=== PATIENT | male | born 1960 | race Caucasian/White ===

== ENCOUNTER 2024-01-17 08:05 | Emergency (ER) | payer MEDICARE, OTHER, SELFPAY ==
[2024-01-17] VITALS (7 sets, daily range): BP systolic 72–160; BP diastolic 50–102
--- NOTE | 2024-01-17 09:10 | ED.CVA ---
History of Present Illness
General
Chief Complaint: CVA/TIA Symptoms
Source: patient and records
Exam Limitations: none
Time Seen by Provider: 01/17/24 08:36
Nursing documentation reviewed up to this point in time: agreed with except (Triage note mentions left facial droop but patient actually has right facial droop)
Onset of Stroke Symptoms
Onset of symptoms known: Yes
Date of onset of symptoms: 01/16/24
History of Present Illness
History of Present Illness:
63-year-old male with past medical history of hyperlipidemia, atrial fibrillation on Eliquis, CHF who presents to the emergency department for evaluation of right facial droop and numbness. Patient reports that he first noticed abnormal
sensation/numbness in his face Thursday night into Thursday morning (he says around midnight). He says that he has CPAP mask that he wears at night and attributed the feeling to positioning of his CPAP. He says that when he woke up around 5 AM
Thursday morning he did notice that he had a slight facial droop but again attributed to his CPAP. He says that this morning he woke up and while he was eating breakfast he could not keep the food in his mouth due to drooping of the right side of
the face. He came to the emergency room to be assessed. Aside from numbness and weakness in the right face he also reports difficulty with his hearing in the right ear. He denies any other significant symptoms�denies headache, weakness or
numbness in the extremities, difficulty with speech or vision. He says that he did have drooping of his right eye in the distant past and was told it was related to a migraine. He does have a known history of A-fib, is on Eliquis and compliant.
Past History
Past History
ED Past Medical History: Hypercholesterolemia and Other (Diverticulitis)
ED Past Surgical History: Bowel resection (for diverticulitis 2016)
Social History
Tobacco: Smoker (A pack and 1/2/day)
Alcohol: Occasional (3-4 cocktails per week)
Drug: None
Personal:
Living: alone
Family History
Family History: Other (His father had hypertension diabetes, testicular cancer and CT)
Review of Systems
Review of Systems
All Other Systems: ROS reviewed and negative except as documented in HPI and ROS
Constitutional: Denies fever
EENT: Reports other (Facial droop, hearing loss)
Respiratory: Denies cough or trouble breathing
Cardiac: Denies chest pain or palpitations
ABD/GI: Denies abdominal pain, nausea or vomiting
Musculoskeletal: Denies neck pain or back pain
Neurological: Reports weakness (Facial) and numbness (Facial); Denies dizzy or headache
Phy Exam
Physical Exam
Physical Exam:
General: Awake, alert, oriented x3; no acute distress
Head: Normocephalic, atraumatic
Eyes: Conjunctiva normal, EOMI, pupils equal round react light
Ears: TMs clear bilaterally�specifically no vesicles or other lesions in the right canal
Throat: Airway intact, handling secretions
Neck: Trachea midline, supple without meningismus
Lungs: Clear to auscultation bilaterally, no wheezing, rales, rhonchi
Heart: Regular rate and rhythm, no murmurs, gallops, or rubs�apparently had bradycardia in triage resolved on my assessment
Neuro: Patient has right facial droop�he can slightly raise the right eyebrow but cannot raise the corner of the right side of his mouth; subjective sensory deficit right side of the face; cranial nerves otherwise intact; motor and sensory function
is intact and symmetric proximally and distally in the upper and lower extremities; speech is fluid with no dysarthria or aphasia; no limb ataxia
Skin: no rash
Extremities: No edema in extremities, equal pulses in all extremities
Scores
NIH Stroke Score
Level of Consciousness: 0 - Alert
LOC Questions: 0-Answers both correctly
LOC Commands: 0-Performs both correctly
Best Horizontal Gaze: 0-Normal
Visual Kim: 0=Normal, no visual loss
Facial Palsy: 3=Complete paralysis
Motor - Right Arm: 0=No drift 10 seconds
Motor - Left Arm: 0=No drift 10 seconds
Motor - Right Le-No drift 5 seconds
Motor - Left Le-No drift 5 seconds
Limb Ataxia: 0-Absent
Sensation: 1-Mild loss (Right face)
Best Language: 0-No aphasia
Dysarthria: 0-Normal
Extinction and Inattention: 0-No abnormality
Total Score:: 4
Thrombolytic Contraindication
Inclusion and Exclusion criteria reviewed: Yes
Reasons for NON-Tx with Thrombolytics ABSOLUTE Exclusions: Greater than 4.5 hrs from onset of sxs and Patient taking oral anticoagulant and last dose within 48 hours
Heart Failure Risk
Heart Failure Risk Score: Not Applicable
Heart Score for Chest Pain Patients
STEMI patient?: Not applicable
Withdrawal Assessment of Alcohol
Withdrawal Assessment Completed?: Not applicable
Course
Orders/Labs/Results
Orders:
Orders
01/17/24 08:12
Electrocardiogram (*1) Urgent
Reason for Study: Bradycardia / Tachycardia
EKG- Treatment ONCE
01/17/24 08:38
CT Head W/o Iv Contrast Urgent
Comment:
Reason For Exam: L facial weakness, headache, dizzy
01/17/24 08:39
Urinalysis Reflex To Culture Urgent
Date Specimen was Collected: 01/17/24
Time Specimen was Collected: 09:01
01/17/24 09:03
Complete Blood Count/With Diff Urgent
Comprehensive Metabolic Panel Urgent
01/17/24 09:06
NEUROLOGY CONSULT Urgent
Consulting Provider: Haris Fuller
Was physician already notified: Yes
01/17/24 09:09
Electrocardiogram (*1) Urgent
Reason for Study: TIA/Stroke
EKG- Treatment ONCE
01/17/24 10:53
Add On- LAB Routine
Comments:: Please add to today's labs or draw as routine
Tests Added?: TSH reflex, Ferritin, Folate, Vit. B12, ESR, Lyme, PHONG
01/17/24 10:55
Add On- LAB Routine
Comments:: Please add to today's labs or draw as routine
Tests Added?: HgbA1C, CRP
Abnormal Lab Results
01/17/24
09:03
MCV 95.8 H fL
(80.0-94.0)
MCH 34.1 H pg
(27.0-31.0)
Abs Immat Gran (auto) 0.1 H 10^3/uL
(0-0.05)
Absolute Monos (auto) 0.8 H 10^3/uL
(0.1-0.6)
Immature Gran % 1.3 H %
(0-0.5)
Lymphocytes % 20.0 L %
(20.5-51.1)
Glucose 116 H mg/dl
(70-99)
01/17/24 09:03
01/17/24 09:03
Vital Signs
Initial and Last Documented VS:
Initial Vital Signs
Temp Pulse BP Pulse Ox
36.7 C 40 72/50 97
01/17/24 08:11 01/17/24 08:11 01/17/24 08:11 01/17/24 08:11
Last Documented Vital Signs
Temp Pulse Resp BP Pulse Ox
36.7 C 62 12 119/101 95
01/17/24 08:11 01/17/24 10:45 01/17/24 10:45 01/17/24 10:00 01/17/24 10:45
MDM/Problems Addressed
Differential Diagnosis Includes:
Jenkins's palsy, stroke, brain mass, hemorrhage, complex migraine, seizure
MDM/Problems Addressed:
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 Mildly hypertensive otherwise normal vitals; apparently had bradycardia in triage but EKG
shows sinus rhythm with rate in the 70s. Jenkins's palsy is certainly a consideration but he can slightly raise his right eyebrow which raises concern for possible stroke especially with a chronic ointment sensory deficit and report of some hearing
disturbance as well. Furthermore he has a history of A-fib which increases stroke risk. He is not a TNK candidate given active anticoagulant use and would be outside window for TNK regardless; for this reason no stroke alert called. Will send for
a CT head. Check labs including a CBC and CMP, urinalysis. Case was discussed with neurology for evaluation.
Labs reviewed: CBC and CMP no clinically significant abnormalities. CT head negative for any acute stroke; does show findings concerning for sinusitis. EKG shows sinus rhythm. Neurology evaluated at bedside and suspect Jenkins's palsy. Recommended
treating with steroid and can follow-up as an outpatient. Will also start Valtrex. CT did show sinusitis, unlikely trigger for facial nerve palsy but will cover with antibiotics. Artificial tears and advised to tape eye shut at night. Spoke
about treatment plan and follow-up plan with the patient and he is comfortable with this. All questions answered.
Chronic conditions affecting care:
A-fib on Eliquis
Acute Exacerbation and/or Progression of Chronic Illness:
Acutely hypertensive
Acute Exacerbation and/or Progression of Chronic Illness: HTN
*Radiology
Radiology exam reviewed: radiology read reviewed
*Pulse Oximetry
Patient hypoxic: no
*EKG
Interpreted by ED Provider?: Yes
Heart Rate: 72
Rate: normal
Rhythm: sinus and PAC's
[place]: normal axis
Interval: long QT
QRS Pattern: normal QRS
Ischemia: non-specific ST changes
*Critical Care Note
Total Time (30-74mins, 75-104mins- exclusive of procedures): Not Applicable
Data Reviewed
Review of Other/Old Records Reveals: Labs and Records
Source: patient and records
Patient Management
Discussion with other providers: It Senior Analyst (Discussed with neurology)
ED Attending Note
-
Portions of this chart may have been created with voice recognition software.� Occasional wrong word or��sound alike� substitutions may have occurred due to the inherent limitations of voice recognition software.
Discharge Plan
Departure
Patient Disposition: Home (Routine Discharge)
Date of Disposition: 01/17/24
Time of Disposition: 10:59
Patient with high blood pressure during this ER visit?: Yes
Discharge Problem:
Jenkins's palsy, Sinusitis
Instructions: Jenkins's Palsy (DC), Sinusitis, Adult ED
Prescriptions:
New
prednisone 20 mg tablet
60 mg PO DAILY 7 Days Qty: 21 0RF
valacyclovir [Valtrex] 1 gram tablet
1,000 mg PO TID 7 Days Qty: 21 0RF
artifi.tears(hypromellose)(PF) 1.7 % drops with applicator
2 drp ophthalmic (eye) Q1H Qty: 12 0RF
amoxicillin-pot clavulanate 875-125 mg tablet
1 tab PO BID 7 Days Qty: 14 0RF
No Action
'Statin'
1 tab PO HS
Patient Comments:
'some statin' unsure what
Ambien: Tab
PO PRN PRN (Reason: sleep)
Patient Comments:
patient states he does not remember the dose, he takes it once a week or so.
acetaminophen 325 MG tablet
650 mg PO Q4HPRN PRN (Reason: mild pain/JACKSON/temp> 100.4F) 0RF
polyethylene glycol 3350 17 GRAMS powder in packet
17 grams feeding tube DAILY 0RF
carvedilol 3.125 MG tablet
3.125 mg PO BID Qty: 60 3RF
magnesium hydroxide 30 ML suspension
30 ml PO DAILYPRN PRN (Reason: CONSTIPATION) 0RF
furosemide 80 MG tablet
80 mg PO DAILY Qty: 90 0RF
pantoprazole 40 MG tablet,delayed release (DR/EC)
40 mg PO DAILY Qty: 30 3RF
lisinopril 5 MG tablet
5 mg PO DAILY Qty: 30 3RF
alum-mag hydroxide-simeth [Mag-Al Plus] 30 ML suspension
30 ml PO Q6HPRN PRN (Reason: INDIGESTION) 0RF
apixaban [Eliquis] 5 MG tablet
5 mg PO BID Qty: 60 3RF
amoxicillin-pot clavulanate 875-125 mg tablet
1 tab PO BID Qty: 19 0RF
metronidazole 500 mg tablet
500 mg PO TID Qty: 21 0RF
ciprofloxacin HCl [Cipro] 500 mg tablet
500 mg PO BID Qty: 14 0RF
Referrals:
Haris Fuller MD [Active] - Call in 1-3 days for appt (Neurology)
Macario Harrison MD [Active] - Call in 1-3 days for appt
Rachid Gilmore MD [Family Provider] - Follow up in 5-7 days
Activity Restrictions/Additional Instructions:
Thank you for visiting the Emergency Department at [facility].
1. Please schedule a follow up appointment as directed. Call first thing tomorrow morning to make an appointment.
2. If indicated, please take your medications as instructed and indicated on discharge paperwork.
3. If any of your symptoms do not improve, or persist, or become more severe within 6-12 hours, please return to the emergency department for further care.
4. Please return to the emergency department if you develop a headache, neck pain/stiffness, fever greater than 100.4F, chest pain, shortness of breath, persistent nausea, vomiting, slurred speech, difficulty walking, numbness/tingling, weakness,
signs of infection or any other symptoms that are worrisome to you.
Please call [phone] if you have any questions.
Interventions
Interventions:
*Risk Screen - Suicide Last Done: 01/17/24 08:12
*General Assessment Last Done: 01/17/24 08:12
*Neglect/Abuse Screening Last Done: 01/17/24 08:12
ED- Fall Risk Assessment Last Done: 01/17/24 08:12
*ED COVID-19 Vaccine History Last Done: 01/17/24 08:12
ED- Neurological Assessment Last Done: 01/17/24 08:12
ED- Cardiac Assessment Last Done: 01/17/24 08:12
Discharge Date and Time
Print Language: SERBIAN
[2024-01-17 09:21] LABS: % Basophils 0.4 % (0-2); % Immature Granulocytes 1.3 % (0-0.5); % Monocytes 8.1 % (1.7-9.3); % Neutrophils 67.2 % (42.2-75.2); Absolute Eosinophils 0.3 10^3/uL (0-0.7); Absolute Immature Granulocytes 0.1 10^3/uL (0-0.05); Absolute Lymphocytes 1.9 10^3/uL (1.2-3.4); Absolute Monocytes 0.8 10^3/uL (0.1-0.6); Absolute Neutrophils 6.3 10^3/uL (1.4-6.5); Hematocrit 50.6 % (39.0-52.0); Mean Corp Hgb Conc. 35.6 g/dL (33.0-37.0); Mean Corpuscular Hgb 34.1 pg (27.0-31.0); Mean Corpuscular Volume 95.8 fL (80.0-94.0); Nucleated Red Blood Cells % 0 % (-); Platelet Count 348 10^3/uL (130-400); Red Blood Cell Count 5.28 10^6/uL (4.70-6.10); Red Cell Dist. Width 13.7 % (11.5-14.5); White Blood Cell Count 9.4 10^3/uL (4.8-10.8)
[2024-01-17 09:36] LABS: ALT (SGPT) 14 U/L (0-50); AST (SGOT) 23 U/L (17-59); Albumin 4.2 g/dl (3.5-5.0); Alkaline Phosphatase 96 U/L (38-126); Blood Urea Nitrogen 18 mg/dl (9-20); Calcium 9.6 mg/dl (8.4-10.2); Carbon Dioxide 27 mmol/L (22-30); Chloride 105 mmol/L (98-107); Glucose 116 mg/dl (70-99); Potassium 4.1 mmol/L (3.5-5.1); Sodium 140 mmol/L (135-145); Total Bilirubin 0.7 mg/dl (0.2-1.3); Total Protein 6.7 g/dl (6.3-8.2); eGFR > 60.00
--- NOTE | 2024-01-17 09:37 | CON.NEURO ---
Neuro Assessment/Plan
Assessment
Acute onset of right-sided facial weakness
Most likely due to right facial nerve palsy based on exam.
Plan
Provide prednisone 60 mg with 10 mg taper daily until off
No indication is of antiviral agents
Speech therapy to consider facial stimulation and exercises for improved movement on the right
Check blood work for potential metabolic causes
Will follow as needed
Consultation
Order
Date of Consultation: 01/17/24
Requesting Provider: Emergency department physician
Reason for Consult: Right-sided weakness
Subjective/Objective
Subjective Data
Date of Service: January 17, 2024
Right-Handed
Patient presented to this [facility]'s emergency department approximately 36 hours after onset of right-sided facial weakness and numbness. The patient began experiencing facial sensation in the right side of the face 36 hours ago and continue to be
aware of this problem at approximately 0000 hrs. yesterday. Presumed that his symptomatology was due to positive air pressure mask and machine use and continue to experience that problem yesterday morning with the addition of right-sided facial
weakness. With the suggestion of mild worsening and difficulty with food falling out of his mouth he presented to this [facility]'s emergency department. The patient also reported difficulty with right ear hearing starting 24 hours ago.
Left side OK. No cognitive issues.
Numbness extended from V2 to V3 and then right eye became heavy.
Poor quality of sleep which is chronic. Prior treatments with OTC medications and zolpidem.
Objective Data
Vital Signs
Temp Pulse Resp BP Pulse Ox
36.7 C 52 16 159/102 97
01/17/24 08:11 01/17/24 08:29 01/17/24 08:29 01/17/24 08:29 01/17/24 08:11
Lab Results
01/17/24 09:03
01/17/24 09:03
Sodium 140 mmol/L (135-145) 01/17/24 09:03
Potassium 4.1 mmol/L (3.5-5.1) 01/17/24 09:03
BUN 18 mg/dl (9-20) 01/17/24 09:03
Glucose 116 mg/dl (70-99) H 01/17/24 09:03
Calcium 9.6 mg/dl (8.4-10.2) 01/17/24 09:03
Patient Allergies
Tetanus Vaccines and Toxoid [Tetanus Vaccines & Toxoid] Allergy (Intermediate, Verified 01/17/24 08:28)
Hives
cephalexin monohydrate [From Keflex] Allergy (Mild, Verified 01/17/24 08:28)
Unknown
amoxicillin [Amoxicillin] Adverse Reaction (Verified 01/17/24 08:28)
Unknown
atorvastatin calcium [From Lipitor] Adverse Reaction (Verified 01/17/24 08:28)
Unknown
Review of Systems
-
History Source: Patient
All other systems: Reviewed and negative
EENT: Hearing Loss; Negative Decreased Vision or Swallowing Difficulty
Respiratory: Negative Trouble Breathing
Cardiac: Negative Chest Pain
Abdomen/GI: Negative Incontinence of Stool
Genitourinary: Negative Incontinence
Musculoskeletal: Negative Back Pain or Neck Pain
Neuro: Negative Dizzy or Headache
Physical Exam
-
General: No Apparent Distress and Appears Stated Age
Eyes: OU Absent Papilledema, Able to visualize OU, Round OU, [place] Conjunctivae and No Ptosis
HEENT: Anicteric and Moist Mucous Membranes
Neck: Full Range of Motion
Respiratory: No Dyspnea
Cardiac: No JVD
GI: Non-distended
Skin: Unremarkable
Extremities: No Clubbing, No Cyanosis and No Edema
Psych: Intact Judgement/Insight
Extended Neurological Exam
Mood & Affect: Mood Unremarkable and Affect Unremarkable
Attention Span & Concentration: Awake, Alert, Interactive and No Difficulty with 2 Step Request
Memory: Unremarkable
Tremor: Hand Tremor Absent and Head Tremor Absent
Speech: Quality Unremarkable and Quantity Unremarkable
Cranial Nerve II: Left Eye: Pupillary Reactivity Unremarkable, Pupillary Size Unremarkable and Visual Kim Intact
Cranial Nerve II: Right Eye: Pupillary Reactivity Unremarkable, Pupillary Size Unremarkable and Visual Kim Intact
Cranial Nerves III, IV, : Extraocular Movement: Extraocular Movement Full in all Directions
Cranial Nerve VII: Facial Symmetry: Reduced (On the right, with reduced eye blink speed on the right and reduced right forehead movement)
Cranial Nerve VIII: Hearing: Reduced on Left; Negative Reduced on Right
Cranial Nerves IX, X: Palate Movement: Palate Elevation Symmetric
Cranial Nerve XI: Shoulder Shrug: Unremarkable
Cranial Nerve XII: Tongue Protusion: Midline
Muscle Strength, Overall: Full Throughout
Muscle Bulk & Tone: Bulk Unremarkable and Tone Unremarkable
Pronator Drift: No Drift in Upper Extremities
Deep Tendon Reflexes: Trace Throughout
Touch Sensation: Unremarkable
Coordination: [id number] Testing Unremarkable
Babinski Sign: Absent Bilaterally
Data Reviewed
-
CT Head: Report Reviewed and Image Reviewed
Labs: Report Reviewed
Reviewed with: Physician and Patient
Old Records: Summarized
Medications
-
Home Medications
�Medication �Instructions �Recorded
'Statin' 1 tab PO HS 03/08/21
Ambien: PO PRN PRN sleep 03/10/21
acetaminophen 325 mg tablet 650 mg (2 x 325 mg) PO Q4HPRN PRN 03/13/21
mild pain/JACKSON/temp> 100.4F
aluminum-mag hydroxide-simethicone 30 ml PO Q6HPRN PRN INDIGESTION 03/13/21
200 mg-200 mg-20 mg/5 mL oral susp
(Mag-Al Plus)
apixaban 5 mg tablet (Eliquis) 5 mg PO BID #60 tabs 03/13/21
carvedilol 3.125 mg tablet 3.125 mg PO BID #60 tabs 03/13/21
furosemide 80 mg tablet 80 mg PO DAILY #90 tabs 03/13/21
lisinopril 5 mg tablet 5 mg PO DAILY #30 tabs 03/13/21
magnesium hydroxide 400 mg/5 mL 30 ml PO DAILYPRN PRN CONSTIPATION 03/13/21
oral suspension
pantoprazole 40 mg tablet,delayed 40 mg PO DAILY #30 tabs 03/13/21
release
polyethylene glycol 3350 17 gram 17 grams feeding tube DAILY 03/13/21
oral powder packet
amoxicillin 875 mg-potassium 1 tab PO BID #19 tabs 06/08/22
clavulanate 125 mg tablet
ciprofloxacin HCl 500 mg tablet 500 mg PO BID #14 tabs 06/10/22
(Cipro)
metronidazole 500 mg tablet 500 mg PO TID #21 tabs 06/10/22
Past History
Past History
ED Past Medical History: Arrthythmia (Atrial fibrillation, nonsustained V. tach), CHF, Hypercholesterolemia, Other (Cardiogenic shock 2020, nonischemic cardiomyopathy, obstructive sleep apnea, acute renal insufficiency, suspected COPD, tobacco
abuse, obesity diverticulitis) and Other (Impaired fasting glucose, insomnia, pneumonia, migraine with aura)
ED Past Surgical History: Bowel resection (for diverticulitis 2016), Tonsilectomy and Urological (Vasectomy)
Social History
Tobacco: Smoker (A pack and 1/2/day)
Alcohol: Occasional (3-4 cocktails per week)
Drug: None
Personal:
Living: alone
Family History
Family History: Other (His father had hypertension diabetes, testicular cancer and [place])
[2024-01-17 11:45] LABS: C-Reactive Protein < 5.00 mg/L (0.0-10.00)
[2024-01-17] MEDS: DELTASONE 60 MG PO (12:00)
[2024-01-17 12:16] LABS: TSH Reflex To Free T4 1.91 uIU/ml (0.47-4.68)
[2024-01-17 12:20] LABS: Ferritin 72.9 ng/ml (17.9-464.0)
[2024-01-17 12:24] LABS: Glycohemoglobin (HgbA1c) 5.6 % (4.0-5.6)
[2024-01-17 12:51] LABS: Folate 10.2 ng/ml (2.76-20); Vitamin B12 257 pg/ml (239-931)
[2024-01-17 12:55] LABS: Erythrocyte Sed Rate 6 mm/hour (0-20)
[2024-01-18 14:39] LABS: Lyme Antibody Screen, EIA Negative (Negative)
[2024-01-19 00:11] LABS: ANA, IgG Reflex to HEp-2 None Detected (None Detected)
== END 2024-01-17 11:10 | disposition home or self-care (01) ==
LOC: EMR 08:05
PROVIDERS: CONSULT PHYSICIAN Psychiatry & Neurology Neurology; EMERGENCY PHYSICIAN Emergency Medicine; FAMILY PHYSICIAN Family Medicine
DX: G51.0 Bell's palsy (principal); J32.9 Chronic sinusitis, unspecified; E78.00 Pure hypercholesterolemia, unspecified; I48.91 Unspecified atrial fibrillation; Z79.01 Long term (current) use of anticoagulants; I11.0 Hypertensive heart disease with heart failure; I50.9 Heart failure, unspecified; F17.200 Nicotine dependence, unspecified, uncomplicated
CPT/HCPCS: 99285; 70450; 80053; 82607; 82728; 82746; 83036; 84443; 85025; 85652; 86038; 86140; 86618; 93005

== ENCOUNTER 2024-08-11 06:22 | Outpatient (RCR) | payer MEDICARE, OTHER, SELFPAY | END 2024-08-11 23:59 | disposition home or self-care (01) | LOC: RPT 06:22 | PROVIDERS: ATTENDING PHYSICIAN Physician Assistant | DX: G51.0 Bell's palsy (principal); Z73.6 Limitation of activities due to disability | CPT/HCPCS: 97112; 97162 ==

== ENCOUNTER 2024-09-01 14:46 | Outpatient (RCR) | payer MEDICARE, OTHER, SELFPAY | END 2024-09-01 23:59 | disposition home or self-care (01) | LOC: RPT 14:46 | PROVIDERS: ATTENDING PHYSICIAN Physician Assistant | DX: G51.0 Bell's palsy (principal); Z73.6 Limitation of activities due to disability; R47.89 Other speech disturbances | CPT/HCPCS: 97112; 97124 ==

== ENCOUNTER 2024-09-21 15:00 | Outpatient (RCR) | payer MEDICARE, OTHER, SELFPAY | END 2024-09-21 23:59 | disposition home or self-care (01) | LOC: RPT 15:00 | PROVIDERS: ATTENDING PHYSICIAN Physician Assistant | DX: G51.0 Bell's palsy (principal); Z73.6 Limitation of activities due to disability; R47.89 Other speech disturbances | CPT/HCPCS: 97010; 97112; 97124; 97530 ==

== ENCOUNTER 2025-01-13 02:44 | Inpatient (IN) | payer MEDICARE, OTHER, SELFPAY ==
[2025-01-12 23:57] VITALS: BP 156/103; BMI 31.3
[2025-01-13] VITALS (39 sets, daily range): BP systolic 93–159; BP diastolic 61–111; PULSE 2–84
--- NOTE | 2025-01-13 00:02 | ED.GENMED ---
History of Present Illness
General
Chief Complaint: Breathing Problem
Source: patient
Exam Limitations: none
Time Seen by Provider: 01/13/25 00:02
Nursing documentation reviewed up to this point in time: agreed with
History of Present Illness
History of Present Illness:
Patient with history atrial fibrillation on Eliquis and congestive heart failure on Lasix (per patient, only takes it on Saturdays), presents to ED secondary to sudden onset of shortness of breath with diaphoresis, when he laid down to sleep this
evening. Denies chest pain. Denies nausea or vomiting. Denies dizziness. Denies coughing. Denies recent illness. Denies back pain. Denies leg pain or swelling. Denies recent travel or surgery. Denies weight gain. Denies recent change in
medications or diet. Patient states that 4 years ago, he had similar symptoms, but worse. Per paramedics, patient found to be in moderate respiratory distress. With concern for potential CHF exacerbation/pulm edema, patient given nitroglycerin
bolus and started on infusion, as well as 100% nonrebreather, during transport to ED.
Past History
Past History
ED Past Medical History: Arrthythmia (Atrial fibrillation, nonsustained V. tach), CHF, Hypercholesterolemia, Other (Cardiogenic shock 2020, nonischemic cardiomyopathy, obstructive sleep apnea, acute renal insufficiency, suspected COPD, tobacco
abuse, obesity diverticulitis) and Other (Impaired fasting glucose, insomnia, pneumonia, migraine with aura)
ED Past Surgical History: Bowel resection (for diverticulitis 2016), Tonsilectomy and Urological (Vasectomy)
Social History
Tobacco: Smoker (A pack and 1/2/day)
Alcohol: Occasional (3-4 cocktails per week)
Drug: None
Personal:
Living: alone
Family History
Family History: Other (His father had hypertension diabetes, testicular cancer and SC)
Review of Systems
Review of Systems
Allergies reviewed?: Yes
All Other Systems: ROS reviewed and negative except as documented in HPI and ROS
Constitutional: Reports no symptoms
Respiratory: Reports trouble breathing
Cardiac: Reports no symptoms
ABD/GI: Reports no symptoms
: Reports no symptoms
Musculoskeletal: Reports no symptoms
Skin: Reports no symptoms
Neurological: Reports no symptoms
Phy Exam
Physical Exam
Physical Exam:
Physical Exam
General: mild respiratory distress, not acutely ill. afebrile
Head: nc/at. eomi
Neck: supple. normal range of motion.
Heart: s1/s2 regular rate and rhythm
Lungs: mild respiratory distress. crackles bilaterally
Abdomen: normal bowel sounds. not tender.
Neuro: alert and oriented x 3. no focal neurological deficits
Skin: no rash
Psychiatric: well kept. interactive and cooperative
Extremities: LE b/l edema, nonpitting. no calf tenderness.
Scores
Heart Failure Risk
Heart Failure Risk Score: Yes
History of Stroke or TIA: No
History of intubation for respiratory distress: No
Heart rate on ED arrival >/= 110: No
SaO2 <90% on arrival on room air: No
HR >/=110 during 3min walk test (or too ill to perform test): No
ECG has acute ischemic changes: No
Urea >/=12mmol/L (BUN 33.6mg/dL): No
Serum CO2>/=35mmol/L: No
Troponin I or T elevated to SC Level (0.4mg/dL): Yes
NT-proBNP >/=5,000ng/L (5,000pg/ml): Yes
HF Risk Score: 3
Admission Status: HIGH RISK 15.9% Consider SNF treatment or admission to hospital
Course
Orders/Labs/Results
Orders:
Orders
01/13/25 00:02
CR Chest Portable - 1 View Urgent
Comment:
Reason For Exam: sob
Reason Study Needs to be Portable: Patient Unstable
01/13/25 00:03
Electrocardiogram (*1) Urgent
Reason for Study: Shortness of Breath
EKG- Treatment ONCE
01/13/25 00:09
Complete Blood Count/With Diff Urgent
01/13/25 00:14
Furosemide [Lasix] 40 mg .ROUTE .STK-MED ONE
Nitroglycerin 100 mg/250 ml [Nitroglycerin Premix] 100 mg in 250 ml .ROUTE .STK-MED
01/13/25 00:17
Furosemide [Lasix] 60 mg IV NOW STA
01/13/25 00:30
Nitroglycerin 100 mg/250 ml [Nitroglycerin Premix] 100 mg in 250 ml IV PER PROTOCOL
Initial dose in mcg/min, then titrate:: 100
Titrate to keep:: SBP < 160 mmHg
Titrate by mcg/min:: 5 mcg/min, may increase by 10 mcg/min if dose > 20 mcg/min
Frequency of titrations (minutes):: every 3-5 minutes
Maximum dose in mcg/min:: 200
Begin to taper infusion when:: Remained at goal for 2hrs
Taper by mcg/min:: 5 mcg/min
Frequency of taper (minutes) if patient maintains goal:: 30
Taper to off?: Yes
If infusion off & no longer maintaining goal:: Contact Provider
01/13/25 01:14
Comprehensive Metabolic Panel Urgent
Comment: REDRAW
Magnesium Urgent
Comment: REDRAW
NT-proBNP Urgent
Comment: REDRAW
Troponin I Urgent
Comment: REDRAW
01/13/25 02:13
Admit/Transfer Patient As Directed
Co-Sign Provider:
Level of Care: Inpatient admission
Assign to:: IVU
Physician / Group: Lora
Diagnosis: CHF exacerbation
Reason for Hospitalization: Hypoxic respiratory failure
Expected length of stay greater than two midnights?: Yes
ELOS- Estimated Length of Stay in days: 2
I certify the patient meets the requirements for IP care: Yes
PRN Pain Medication Management As Directed
May give lesser potent ordered pain med per pt: Yes
preference::
Protocol:: Medication orders for pain may be administered in a
manner that supports deferring to patient preference
when the pt is:
- Requesting an ordered lesser potent pain medication.
Least to most potent pain medications are defined
as: acetaminophen < NSAID < tramadol < opioids
(morphine, oxycodone, hydromorphone).
- Requesting a lesser dose of the same medication IF
ORDERED.
- Requesting a less intrusive route of administration
if both routes are prescribed by the provider (PO <
IV).
01/13/25 02:14
Code Status As Directed
Resuscitation Status: Full Code
01/13/25 03:53
Acetaminophen [Tylenol] 650 mg PO Q6HPRN PRN
Magnesium Hydroxide [Milk of Magnesia] 30 ml PO DAILYPRN PRN CONSTIPATION
Ondansetron Injectable [Zofran] 4 mg IV Q6HPRN PRN
01/13/25 03:53
Echo 2D MMode Color/Doppler Routine
Reason for Study: heart failure
CARDIOLOGY CONSULT Routine
Consulting Provider: Talha Talbot
Was physician already notified: No
Reason for consult: CHF exacerbation, NIMI
Consult Notification Routine
Specialty to Notify: Cardiology
Date consulting provider notified: 01/13/25
Time consulting provider notified: 06:58
Notified:: Provider
Comment: TT Notified
HF DIETARY CONSULT Routine
HF EDUCATOR CONSULT Routine
Comment:
VTE Contraindication Routine
VTE Mechanical Device Contraindication: Medical Contraindication
Pharmocologic Contraindication: Medical Contraindication
Activity As Directed
Activity Level: With Assistance
Intake/ Output As Directed
Frequency: Per unit guidelines
Patient Education As Directed
Type: CHF folder
Comment: give on admission. Document in Interdisciplinary Education record
Sleep Apnea Assessment by RN As Directed
Comment:
Physician Instructions:
Vital Signs As Directed
Frequency: Other
Additional Instructions:: Q12 or per unit guidelines if more frequent.
Weight As Directed
Frequency: Daily
Type of Scale: Standing Scale
Comment: Daily morning weight. If unable to stand, use balanced bed scale.
Weight As Directed
Frequency: Once
Type of Scale: Standing Scale
Comment: Upon Admission. If unable to stand, use balanced bed scale.
Bipap [RESP] Routine
Patient to use own unit?: No
Inspiratory Pressure (cm H2O): 15
Expiratory Pressure (cm H2O): 5
Oxygen Liter Flow: 6
Pulse Ox/cont/shift [RESP] Routine
Quantity: 1
Special Instructions: Daily pulse oximetry at rest. If greater than 92% at rest also obtain pulse oximetry
while ambulating as tolerated.
01/13/25 04:44
Basic Metabolic Panel IN AM
Cardiovascular Evaluation IN AM
Magnesium IN AM
Phosphorus IN AM
TSH Reflex To Free T4 IN AM
Troponin I Q6H
Comment: at admission & every 6 hours x 2 (3 total), ECG to be done with each level
01/13/25 Breakfast
Cholesterol Lowering
At Your Request: Full Participation
Does patient need a safe tray?: No
Fluid Restriction: 1800 mL/day (60 oz)
Cholesterol Lowering: Sodium, 2 Gram
01/13/25 08:00
Apixaban [Eliquis] 5 mg PO BID
Atorvastatin [Lipitor] 10 mg PO DAILY
Carvedilol [Coreg] 3.125 mg PO BID
Furosemide [Lasix] 40 mg PO BID AT 0800,1600
01/13/25 11:13
Troponin I Q6H
Comment: at admission & every 6 hours x 2 (3 total), ECG to be done with each level
01/14/25 04:55
Basic Metabolic Panel IN AM
Abnormal Lab Results
01/13/25 01/13/25
00:09 01:14
MCV 94.3 H fL
(80.0-94.0)
MCH 31.9 H pg
(27.0-31.0)
Abs Immat Gran (auto) 0.1 H 10^3/uL
(0-0.05)
Absolute Neuts (auto) 6.7 H 10^3/uL
(1.4-6.5)
Immature Gran % 1.0 H %
(0-0.5)
Chloride 108 H mmol/L
(98-107)
Glucose 122 H mg/dl
(70-99)
Troponin I 0.114 H* ng/ml
01/13/25 00:09
01/13/25 01:14
Vital Signs
Initial and Last Documented VS:
Initial Vital Signs
Temp Pulse Resp BP Pulse Ox
97.8 F 77 20 156/103 93
01/12/25 23:57 01/12/25 23:57 01/12/25 23:57 01/12/25 23:57 01/12/25 23:57
Last Documented Vital Signs
Temp Pulse Resp BP Pulse Ox
98.3 F 68 18 126/73 95
01/14/25 11:02 01/14/25 11:02 01/14/25 11:02 01/14/25 11:02 01/14/25 11:02
MDM/Problems Addressed
MDM/Problems Addressed:
History, exam, and chest x-ray consistent with likely an acute CHF exacerbation, likely due to patient's noncompliance with use of Lasix. Patient placed on BiPAP along with nitroglycerin infusion, with improvement in symptoms. Lasix IV also
provided. Patient will be admitted for further evaluation and treatment.
Critical care statement: A total of 40 minutes of critical care time was provided for this patient. This includes management of unstable vital signs, evaluation of the patient at bedside, reviewing the patient's pertinent medical records, review of
old EKGs and review of pertinent medical records. This time with separate from time utilized to perform the aforementioned documented procedures
*Pulse Oximetry
Patient hypoxic: yes
*Critical Care Note
Total Time (30-74mins, 75-104mins- exclusive of procedures): 40 min
ED Attending Note
-
Portions of this chart may have been created with voice recognition software.� Occasional wrong word or��sound alike� substitutions may have occurred due to the inherent limitations of voice recognition software.
Discharge Plan
Departure
Patient Disposition: Admit
Date of Disposition: 01/13/25
Time of Disposition: 00:54
Admit to: IMU
Presentation/result/management discussed w/ accepting MD/DO: Hospitalist
Discharge Problem:
CHF exacerbation
Interventions
Interventions:
*Risk Screen - Suicide Last Done: 01/12/25 23:57
*General Assessment Last Done: 01/12/25 23:57
*Neglect/Abuse Screening Last Done: 01/12/25 23:57
*ED- Fall Risk Assessment Last Done: 01/12/25 23:57
*ED COVID-19 Vaccine History Last Done: 01/12/25 23:57
*Nursing Disposition Last Done: 01/13/25 03:48
ED- Cardiac Assessment Last Done: 01/13/25 00:17
ED- Pulmonary Assessment Last Done: 01/13/25 00:17
Discharge Date and Time
Discharge Date/Time: 01/13/25 03:49
[2025-01-13] MEDS: LASIX 60 MG IV (00:22)
[2025-01-13] MEDS: NITROGLYCERIN PREMIX 250 IV (00:26)
[2025-01-13 00:48] LABS: Hematocrit 50.9 % (39.0-52.0); Hemoglobin 17.2 g/dL (13.0-18.0); Mean Corp Hgb Conc. 33.8 g/dL (33.0-37.0); Mean Corpuscular Volume 94.3 fL (80.0-94.0); Nucleated Red Blood Cells % 0 % (-); Platelet Count 363 10^3/uL (130-400); Red Cell Dist. Width 13.9 % (11.5-14.5)
--- NOTE | 2025-01-13 01:40 | HPS.HSE ---
Family Physician
-
Family Physician: Rachid Gilmore
Chief Complaint
-
Shortness of breath
History of Present Illness
This is a 66-year-old male who has a past medical history of congestive heart failure EF 30% on last eval, on diuretics which he takes only on Sundays, atrial fibrillation status post multiple ablations, on who presents to the emergency
department with sudden onset orthopnea as he laid down this evening.
Patient reported feeling in usual state of health up until onset of symptoms. He denies recent changes in exertional dyspnea, weight gain, lower extremity edema or medication changes. He denies any dietary noncompliance. Denies having any recent
exertional chest pain or chest pain at rest. He denies nausea or vomiting.
This evening he reported that he had a sudden onset of dyspnea and diaphoresis when he laid down. Denies having any cough. He denies any recent fevers or chills. He denies any known sick contacts.
Patient states that 4 years ago, he had similar symptoms, but worse and was found to be in cardiogenic shock at that time. Per paramedics, patient found to be in moderate respiratory distress. With concern for potential CHF exacerbation/pulm edema,
patient given nitroglycerin bolus and started on infusion, as well as 100% nonrebreather, during transport to ED.
Emergency department he was hypoxic to 93%, blood pressure was 110/70 with a pulse of 70 and he had a temperature of 97.3.
Chest x-ray shows pulmonary edema.
ECG sinus arrhythmia rate 72 frequent PACs, telemetry shows induration to atrial fibrillation with controlled rate, troponin 0.14, BNP 6770
CBC shows hemoglobin of 7.2 but otherwise unremarkable.
Electrolytes BUN/creatinine
Medical History
Past Medical History
Past Medical History: Reports Arrhythmia (Atrial fibrillation status post ablation and on anticoagulation), CHF (Nonischemic cardiomyopathy EF 30%) and Hypercholesterolemia
Past Surgical History: Reports Other
Social History
Tobacco: Smoker
Alcohol: Occasional
Drug: None
Personal:
Living: Alone
Family History
Family History: Not pertinent
Allergies / Home Medications
Allergies reflects when Allergies were last updated in [facility].
Home Medications with original date entered in [facility]
Allergy/Medication List:
Allergies
Allergy/AdvReac Type Severity Reaction Status Date / Time
Tetanus Vaccines and Toxoid Allergy Intermediate Hives Verified 01/13/25 01:24
(Tetanus Vaccines & Toxoid)
cephalexin monohydrate (From Allergy Mild Unknown Verified 01/13/25 01:24
Keflex)
amoxicillin (Amoxicillin) AdvReac Unknown Verified 01/13/25 01:24
atorvastatin calcium (From AdvReac Unknown Verified 01/13/25 01:24
Lipitor)
Home Medications
Ambien: 5 mg PO PRN PRN sleep 03/10/21
acetaminophen 325 mg tablet 650 mg (2 x 325 mg) PO Q4HPRN PRN mild pain/JACKSON/temp> 100.4F 03/13/21
apixaban 5 mg tablet (Eliquis) 5 mg PO BID #60 tabs 03/13/21
carvedilol 3.125 mg tablet 3.125 mg PO BID #60 tabs 03/13/21
lisinopril 5 mg tablet 5 mg PO DAILY #30 tabs 03/13/21
magnesium hydroxide 400 mg/5 mL oral suspension 30 ml PO DAILYPRN PRN CONSTIPATION 03/13/21
furosemide 80 mg tablet 40 mg PO WEEKLY 01/13/25
simvastatin 10 mg tablet 10 mg PO BID 01/13/25
Review of Systems
-
Constitutional: Reports No Symptoms
EENT: Reports No Symptoms
Respiratory: Reports Trouble Breathing
Cardiac: Reports No Symptoms
Abdomen/GI: Reports No Symptoms
: Reports No Symptoms
Musculoskeletal: Reports No Symptoms
Skin: Reports No Symptoms
Neurological: Reports No Symptoms
Endocrine: Reports No Symptoms
Hematologic/Lymphatic: Reports No Symptoms
Psych: Reports No Symptoms
Physical Exam
Vital Signs
Vital Signs
Temp Pulse Resp BP Pulse Ox
97.3 F 66 20 111/69 95
01/13/25 00:16 01/13/25 01:20 01/13/25 01:20 01/13/25 01:20 01/13/25 01:20
Physical Exam
General: Well Developed, Well Nourished and No Apparent Distress
HEENT: NormoCephalic, Moist mucous membranes, Atraumatic and Oxygen
Respiratory: Crackles, Non Labored Respirations and Decreased Breath Sounds
Cardiac: S1/S2 and Regular Rhythm; No Murmur or Rub
GI: Soft, Non Tender, Non Distended and Normal Bowel Sounds; No Organomegaly
Rectal: Deferred by Provider
Genito-urinary: Deferred by me
Musculoskeletal: No Clubbing, No Cyanosis and No Edema
Skin: No Rash
Neuro: Nonfocal/grossly intact
Laboratory Results
-
01/13/25 00:09
Laboratory Results
Total Bilirubin Cancelled 01/13/25 00:09
AST Cancelled 01/13/25 00:09
ALT Cancelled 01/13/25 00:09
Alkaline Phosphatase Cancelled 01/13/25 00:09
Troponin I Cancelled 01/13/25 00:09
Data Reviewed
-
Diagnostic Radiology: Image Personally Visualized and interpreted
Medical Tests (Nuc Med, Echo, EKG etc): Image Personally Visualized and interpreted
Lab Data: Labs Reviewed by me
Old Records: Reviewed
Impression/Plan
-
IMPRESSION:
64 year-old with history of nonischemic cardiomyopathy EF 30% and history of cardiogenic shock, atrial fibrillation status post multiple ablation on anticoagulation, PIYUSH on CPAP who presents to the emergency department with acute onset of shortness
of breath and diaphoresis after laying down this evening. He reports some weight gain of about 5 pounds over the last few weeks. Denies any lower extremity swelling but he states he never gets lower extremity swelling. He cannot denies increasing
abdominal girth. Reports compliance with his diuretic regimen but reports some liberalization of his diet due to the heat. X-ray with pulmonary edema and immediately placed on BiPAP in the emergency department with nitroglycerin drip.
Nitroglycerin now turned off due to relative hypotension.
PLAN:
CHF exacerbation -CHF exacerbation, suspect nonischemic myocardial injury from hypoxia with troponin of 0.14 but cannot rule out NSTEMI. BNP is further elevated to 6700. Patient appears to have low blood pressure with his CHF exacerbation
concerning for possible development of cardiogenic shock again.
-Admit to IVU
-Discontinue nitroglycerin for now
-Lasix 40 mg IV twice daily as BP tolerate
-Hold lisinopril
-Trend troponin, if increasing will start heparin but for now we will continue Eliquis
-Continue statin
-Daily weights and ins and outs
-Echo in a.m.
-Cardiology consult
AFIB - AFIB w/ rate controlled. S/P multiple ablations
- continue coreg
- continue ac
PIYUSH - CPAP HS at home
- on bipap for now
DVT prophylaxis�on Eliquis
CODE STATUS�full code
[2025-01-13 01:43] LABS: ALT (SGPT) 11 U/L (0-50); AST (SGOT) 21 U/L (17-59); Albumin 3.8 g/dl (3.5-5.0); Alkaline Phosphatase 79 U/L (38-126); Blood Urea Nitrogen 19 mg/dl (9-20); Calcium 8.6 mg/dl (8.4-10.2); Carbon Dioxide 22 mmol/L (22-30); Chloride 108 mmol/L (98-107); Estimated Creatinine Clearance 95 ml/min; Glucose 122 mg/dl (70-99); Magnesium 2.1 mg/dl (1.6-2.3); Potassium 4.2 mmol/L (3.5-5.1); Sodium 136 mmol/L (135-145); Total Protein 6.4 g/dl (6.3-8.2); eGFR > 60.00
[2025-01-13 01:54] LABS: Troponin I 0.114 ng/ml
[2025-01-13 05:35] LABS: Blood Urea Nitrogen 18 mg/dl (9-20); Calcium 8.6 mg/dl (8.4-10.2); Carbon Dioxide 24 mmol/L (22-30); Chloride 107 mmol/L (98-107); Estimated Creatinine Clearance 83 ml/min; Glucose 108 mg/dl (70-99); HDL Cholesterol 46 mg/dl; LDL Cholesterol, Calculated 112 mg/dl; Magnesium 2.1 mg/dl (1.6-2.3); Potassium 4.1 mmol/L (3.5-5.1); Sodium 139 mmol/L (135-145); Very Low Density Lipoprotein 11 mg/dl (0-30); eGFR > 60.00
[2025-01-13 05:49] LABS: Troponin I 0.192 ng/ml
--- NOTE | 2025-01-13 08:53 | CON.CAR ---
Addendum entered and electronically signed by Barrett Best MD 01/13/25 09:50:
I saw and examined the patient.
The LENS POLISHER's note was reviewed and I agree with the note.
Comment: 64-year-old male with dilated nonischemic cardiomyopathy EF 30%, dyslipidemia, HFrEF, active smoker, atrial flutter status post CTI ablation 03/08/2021, paroxysmal atrial fibrillation on Eliquis, and PIYUSH on CPAP, who presented to the ER with
acute shortness of breath that began last night around 10 PM. He had sudden onset of SOB and diaphoresis.
He remains a smoker and given risk factors, ECG showing ST depressions laterally, and elevated trop; will obtain coronary angiography.
- RHC/C
Original Note:
Consultation
Consultation Request
Date/Time Consultation Requested: 01/13/2025 4 AM
Date/Time Consultation Performed: 01/13/2025 8:30 AM
Requesting Provider: Dr. Paulino
Performing Provider: DINA Freitas for Dr. Best
Reason for Consultation: NSTEMI
Medical History
-
Chief Complaint: Acute SOB
History of Present Illness:
Mr. Rodriguez is a 64-year-old male with dilated nonischemic cardiomyopathy EF 30%, dyslipidemia, HFrEF, active smoker, atrial flutter status post CTI ablation 03/08/2021, paroxysmal atrial fibrillation on Eliquis, and PIYUSH on CPAP, who presented to the
ER with acute shortness of breath that began last night around 10 PM. He describes PND and orthopnea with excessive sweating, so much that his CPAP mask was falling off. He called EMS and was brought to the ER, hypoxia on arrival room air sat in
the low 90s improved with oxygen. He is admitted to the hospitalist service and we are consulted for acute HFrEF and NSTEMI. Chest x-ray with pulmonary edema and proBNP elevated 6700. He denies any acute weight gain or shortness of breath during
the week. He takes Lasix 40 mg once a week on either Thursday or Thursday and his weight has been stable at 212 lbs at home.
Past Medical History
Past Medical History: Other (as above)
Past Surgical History: Other (as above)
Social History
Tobacco: Smoker (1 pack per day since at least 03/2024)
Alcohol: Occasional (2-3 drinks a week)
Personal: Single
Living: Alone
Employment: Employed ([employer])
Family History
Family History: Early CAD (father NM 40s)
Allergies / Home Medications
Allergy/AdvReac Type Severity Reaction Status Date / Time
Tetanus Vaccines and Toxoid Allergy Intermediate Hives Verified 01/13/25 01:24
(Tetanus Vaccines & Toxoid)
cephalexin monohydrate (From Allergy Mild Unknown Verified 01/13/25 01:24
Keflex)
amoxicillin (Amoxicillin) AdvReac Unknown Verified 01/13/25 01:24
atorvastatin calcium (From AdvReac Unknown Verified 01/13/25 01:24
Lipitor)
�Medication �Instructions �Recorded �Confirmed �Type
Ambien: 5 mg PO PRN PRN sleep 03/10/21 01/13/25 History
acetaminophen 325 mg tablet 650 mg (2 x 325 mg) PO Q4HPRN PRN 03/13/21 01/13/25 Rx
mild pain/JACKSON/temp> 100.4F
apixaban 5 mg tablet (Eliquis) 5 mg PO BID #60 tabs 03/13/21 01/13/25 Rx
carvedilol 3.125 mg tablet 3.125 mg PO BID #60 tabs 03/13/21 01/13/25 Rx
lisinopril 5 mg tablet 5 mg PO DAILY #30 tabs 03/13/21 01/13/25 Rx
magnesium hydroxide 400 mg/5 mL 30 ml PO DAILYPRN PRN CONSTIPATION 03/13/21 01/13/25 Rx
oral suspension
furosemide 80 mg tablet 40 mg PO WEEKLY 01/13/25 01/13/25 History
simvastatin 10 mg tablet 10 mg PO BID 01/13/25 01/13/25 History
Review of Systems
-
History Source: Patient
All other systems: Negative unless noted
Physical Exam
Vital Signs
Temp Pulse Resp BP Pulse Ox
97.7 F 64 20 127/75 94
01/13/25 08:04 01/13/25 05:00 01/13/25 08:04 01/13/25 03:50 01/13/25 08:04
Lab Results
01/13/25 00:09
01/13/25 04:44
Troponin I 0.192 ng/ml H* D 01/13/25 04:44
[id number] Pept 6770 pg/ml 01/13/25 01:14
Physical Exam
General: Well Developed, Well Nourished and No Apparent Distress
HEENT: Normocephalic and Anicteric
Respiratory: Clear (mildly diminished b/l bases)
Cardiac: S1/S2 and Regular Rhythm
Breast: Deferred by me
GI: Soft, Non Tender and Non Distended
Rectal: Deferred by Provider
Musculoskeletal: No Clubbing and No Cyanosis
Skin: Warm and Dry
Neuro: AO x 3
Hematologic/Lymphatic: No Lymphadenopathy
Psych: Calm
Impression / Plan
-
HFrEF - acute onset last night.
- EF 30% from echo 2022.
- check echo.
- improved SOB s/p IV Lasix, continue.
- check daily weights. weight at home has been 212 lbs.
- he only takes Lasix 40mg once a week on either Thursday or Thursday due to his work schedule during the week. he will likely need more frequent Lasix dosing during the week.
- check echo today.
- right and left heart cath today.
Possible NSTEMI - troponin 0.114, 0.192, trend to peak.
- in the setting of acute HFrEF.
- denies chest pain, but admits to acute SOB/PND/orthopnea.
- smoker 1ppd since at least 03/2024.
- plan for right and left heart cath today.
NICM/DCM - EF 30%.
- check echo today.
- last cath 2020 w/o ischemia.
- tolerating GDMT with Coreg and Lisinopril.
- in the past he cannot afford Entresto, Farxiga.
- baseline hypotension limits addition of Aldactone or titration of GDMT.
- declines ICD.
Aflutter - s/p CTI ablation 02/2021.
- on Eliquis.
Afib - paroxysmal.
- in NSR with PACs.
- on Eliquis, continue.
Data Reviewed
-
EKG: Tracing Personally Visualized and interpreted
Labs: Labs Reviewed by me
Old Records: Reviewed
--- NOTE | 2025-01-13 09:54 | CM ---
Reviewed chart. Met with Mr. Rodriguez to review discharge plans. He states prior to admission he resides alone [facility] [place] without any steps to enter. He states he has two steps to ge to the kitchen and three steps to get to his second
bedroom. He states prior to admission he was independent with ambulation and adls. He states he has a CPAP Machine at home and no other DME. He states he has a prescription plan and uses [facility]. Medical work-up in progress. The discharge
plan is to return home when medically stable.
[2025-01-13] MEDS: LASIX 40 MG PO ×2 (09:55→15:53)
[2025-01-13] MEDS: COREG 3.125 MG PO ×2 (09:55→20:22)
[2025-01-13] MEDS: ELIQUIS 5 MG PO ×2 (09:55→20:22)
[2025-01-13] MEDS: LIPITOR 10 MG PO (09:55)
--- NOTE | 2025-01-13 12:16 | W.PN.UPDATE ---
Update Note
Progress Note Update
admitted 145 AM with acute CHF requiring IV Lasix
At present, feels comfortably. awaiting Cardiac cath procedure
Assessment:
Acute HFrEF
- Echo: Normal LV size with moderate to severely reduced systolic function. LVEF is approximately 30% by visual estimation. Global hypokinesis. No significant valvular disease. Estimated pulmonary artery pressure of 25 mmHg. Compared to prior
from February 20, 2023, no significant change.
- s/p IV Lasix; on PO Lasix - re-dose post-cath
- follow I/Os, weights, lytes
- for RHC/LHC today
Possible N-STEMI - troponin 0.114, 0.192, trend to peak.
- in the setting of acute HFrEF.
- denies chest pain, but admits to acute SOB/PND/orthopnea.
- smoker 1ppd since at least 03/2024.
- for RHC/LHC today
NICM/DCM - EF 30%.
- GDMT: Coreg/DASIA. in the past he cannot afford Entresto, Farxiga. baseline hypotension limits addition of Aldactone or titration of GDMT.
- declines ICD.
Aflutter - s/p CTI ablation 02/2021.
- on Eliquis.
Afib - paroxysmal.
- in NSR with PACs. Continue Coreg
- on Eliquis, continue.
PIYUSH - CPAP HS at home
- on bipap for now
DVT ppx: Eliquis
Code: Full
[2025-01-13 12:45] LABS: Troponin I 0.231 ng/ml
--- NOTE | 2025-01-13 14:42 | ITS.CL.CATH ---
[facility] - Catheterization
Cardiac Catheterization
Procedure Report:
CARDIAC CATHETERIZATION REPORT
Date of Procedure: 01/13/2025
Referring: Barrett Best M.D.
Indication: Nonischemic cardiomyopathy, acute congestive heart failure, elevated troponin.
PROCEDURE:
1. Right heart catheterization.
2. Coronary angiography.
3. Left heart catheterization.
A total of 13 minutes of procedural/moderate sedation was utilized. An independent medical staff director was present to assist with and help manage the patient's level of consciousness and physiologic status.
ACCESS:
1. 6 [place] right common femoral artery using a modified Seldinger technique with a micropuncture kit under ultrasound guidance.
2. 5 [place] right common femoral vein using a modified Seldinger technique with a micropuncture kit under ultrasound guidance.
CATHETERS:
1. 5 [place] balloon.
2. 5 [place] JR4.
3. 5 [place] JL 4.
4. 125 cm 6 [place] angled pigtail.
HEMODYNAMIC DATA
Weight (kg): 94.8
AO (s/d/x, mmHg): 136/87/106
LV (s/x, mmHg): 139/23
PCWP (a/v/x, mmHg): 28/31/25
PA (s/d/x, mmHg): 47/29/35
RV (s/x, mmHg): 47/12
RA (a/v/x, mmHg): 15/16/12
SVC SvO2 (%): 63.6
IVC SvO2 (%): Not obtained.
RA SvO2 (%): Not obtained.
RV SvO2 (%): Not obtained.
PA SvO2 (%): 65.5
SaO2 (%): 95.0
Hbg (g/dL): 16.4
HIRAL
CO (L/min): 4.04
CI (L/min/m2): 1.90
Thermodilution
CO (L/min): Not performed.
CI (L/min/m2): Not performed.
TPG (mmHg): 10
PVR (Ponce Units): 2.48
SVR (dynes*seconds*cm^-5): 1861
AVO2 Diff (Volume %): 6.58
AV gradient (x, mmHg): None.
AV area (cm2): Normal.
MV gradient (x, mmHg): Not obtained.
MV area (cm2): Not obtained.
LEFT VENTRICULOGRAPHY: Not performed.
AORTOGRAPHY: Not performed.
CORONARY ANGIOGRAPHY
Dominance: Left.
Left Main: Large size, trifurcating vessel. There is no coronary artery disease.
LAD: Large size vessel giving rise to 1 significant diagonal. There is no coronary artery disease.
Ramus: Medium to large size vessel supplying the majority of the lateral wall. There is no coronary artery disease.
Circumflex: Large size, dominant vessel giving rise to 2 obtuse marginals before terminating as a left posterior descending artery. There is no coronary artery disease.
RCA: Medium size, nondominant vessel. There is no coronary artery disease.
INTERVENTIONS
None.
Closure Device: 6 [place] Angio-Seal for the right common femoral artery, manual pressure for the right common femoral vein.
Radiation dose (mGy): 692.9
DAP (cm2.Gy): 59.0932
Fluoroscopy time (minutes): 5.8
CONCLUSIONS:
1. Left dominant circulation with no coronary artery disease.
2. Moderate to severely elevated filling pressures (LVEDP = 23 mmHg, PCWP = 25 mmHg at 94.8 kg).
3. Mild, postcapillary pulmonary hypertension (mean PA = 35 mmHg, PCWP = 25 mmHg, cardiac output = 4.04 L/min, PVR = 2.48 Ponce units), WHO group 2.
4. Probably moderately depressed cardiac index (1.9 L/min/m�, AVO2 difference = 6.58 Volume%).
RECOMMENDATIONS:
1. Expectant management after cardiac catheterization via common femoral approach.
2. Limited weight bearing for one week.
3. Continue diuresis given moderate to severely elevated filling pressures.
4. OMT/GDMT as hemodynamics will tolerate.
Copy to: Chris Lyons PA-C, Yovanny Bellamy M.D.
Marcus Lieberman DO, FACC, FACP
--- NOTE | 2025-01-13 15:36 | PTCARENOTE ---
Rec'd report from Tanisha in the bundle tier and labeler; rec'd the pt back AAOx3 w/no c/o CP or SOB. Pt w/VSS w/HR 50's-60's. SR w/PAC's on telemetry monitoring. Pt w/R groin access site w/dressing C/D/I w/no signs or symptoms of bleeding or hematoma. Pt advised
of activity restrictions post cath & pt verbalized understanding, but does need freq reminders to stay flat & not cross his feet. Pt w/callbell within reach.
--- NOTE | 2025-01-13 19:07 | PTCARENOTE ---
Assumed c/o pt post cardiac cath done via right femoral artery and vein, dressing dry and intact, no sign of bleeding or hematoma. Pt struggled to follow activity restrictions and did report very mild discomfort in his right testicle once he was up
walking. No bruising or swelling noted, will monitor. Telemetry showed sinus rhythm with frequent PAC's. CHF guidelines reviewed with pt who states understanding but also admits to 'hating lasix and what it does to ruin his day' . Plan for IV lasix
on 01/14.
--- NOTE | 2025-01-13 21:53 | PTCARENOTE ---
Pt rec'd at shift change ambulating several times around nursing unit. right femoral site with DDI. Pt states he had testicular discomfort earlier elmo when walking but it resolved with taking shorter stride. No edema noted. Sinus with freq PAC's on
telemetry.
[2025-01-14 03:09] VITALS: PULSE 2
[2025-01-14 04:49] VITALS: BP 129/86
[2025-01-14 04:56] VITALS: BMI 29.6
[2025-01-14 06:00] LABS: Hematocrit 51.7 % (39.0-52.0); Hemoglobin 17.2 g/dL (13.0-18.0); Mean Corp Hgb Conc. 33.3 g/dL (33.0-37.0); Mean Corpuscular Volume 95.6 fL (80.0-94.0); Platelet Count 307 10^3/uL (130-400); Red Cell Dist. Width 13.9 % (11.5-14.5)
[2025-01-14 06:11] LABS: Blood Urea Nitrogen 19 mg/dl (9-20); Calcium 9.1 mg/dl (8.4-10.2); Carbon Dioxide 33 mmol/L (22-30); Chloride 103 mmol/L (98-107); Estimated Creatinine Clearance 75 ml/min; Glucose 90 mg/dl (70-99); Potassium 4.7 mmol/L (3.5-5.1); Sodium 140 mmol/L (135-145); eGFR > 60.00
[2025-01-14 08:10] VITALS: BP 120/93
[2025-01-14] MEDS: LASIX 40 MG IV (08:30)
[2025-01-14] MEDS: LIPITOR 10 MG PO (08:30)
[2025-01-14] MEDS: ELIQUIS 5 MG PO (08:30)
[2025-01-14] MEDS: COREG 3.125 MG PO (08:30)
--- NOTE | 2025-01-14 10:34 | W.PN.CD ---
Today's Communication / Plan
-
Lasix MWF
Cont GDMT meds --> limited by affordability and BP in past
We will arrange f/u. Please call with questions
Impression / Plan
-
HFrEF - acute onset last night.
- EF 30% echo below
- LVEDP mod to severely elevated, weight down --> feels well no SOB
- Lasix 40 MWF
- r/LHC results below
Possible NSTEMI -
- nonischemic myocardial injury
- cath no obstructive CAD
NICM/DCM - EF 30%.
- check echo today.
- last cath 2020 w/o ischemia.
- tolerating GDMT with Coreg and Lisinopril.
- in the past he cannot afford Entresto, Farxiga.
- baseline hypotension limits addition of Aldactone or titration of GDMT.
- declines ICD.
- Lasix MWF
Aflutter - s/p CTI ablation 02/2021.
- on Eliquis.
Afib - paroxysmal.
- in NSR with PACs.
- on Eliquis, continue.
Jan 13 2025: [facility] CONCLUSIONS:
1. Left dominant circulation with no coronary artery disease.
2. Moderate to severely elevated filling pressures (LVEDP = 23 mmHg, PCWP = 25 mmHg at 94.8 kg).
3. Mild, postcapillary pulmonary hypertension (mean PA = 35 mmHg, PCWP = 25 mmHg, cardiac output = 4.04 L/min, PVR = 2.48 Ponce units), WHO group 2.
4. Probably moderately depressed cardiac index (1.9 L/min/m�, AVO2 difference = 6.58 Volume%).
Echo Jan 13 2025: CONCLUSIONS
Normal LV size with moderate to severely reduced systolic function.
LVEF is approximately 30% by visual estimation. Global hypokinesis.
No significant valvular disease.
Estimated pulmonary artery pressure of 25 mmHg.
Compared to prior from February 20, 2023, no significant change.
Physical Exam
Vital Signs/Labs
Vital Signs
Temp Pulse Resp BP Pulse Ox
98.3 F 69 18 120/93 97
01/14/25 08:10 01/14/25 08:10 01/14/25 08:10 01/14/25 08:10 01/14/25 08:10
01/13/25 01/14/25 01/15/25
06:59 06:59 06:59
Actual Weight 209 lb 3.499 oz 206 lb 2.115 oz
01/14/25 04:55
01/14/25 04:55
Magnesium 2.1 mg/dl (1.6-2.3) 01/13/25 04:44
Triglycerides 59 mg/dl (10-149) 01/13/25 04:44
LDL Cholesterol, Calc 112 mg/dl 01/13/25 04:44
VLDL Cholesterol, Calc 11 mg/dl (0-30) 01/13/25 04:44
HDL Cholesterol 46 mg/dl 01/13/25 04:44
01/13/25 01/13/25
00:09 01:14
[id number] Pept Cancelled [id number]
LAB Results
01/13/25 01/13/25 01/13/25
00:09 01:14 04:44
Troponin I Cancelled 0.114 H* 0.192 H* D
01/13/25
11:13
Troponin I 0.231 H*
Physical Exam
Constitutional: No acute distress
EENT: Anicteric
Cardiovascular: Rhythm & rate is regular
Respiratory: Respiratory effort normal and Lungs clear to auscul.
GI: Soft
Neuro/Psych: AO x 3
Data Reviewed
-
Date of Service: January 14, 2025
Medical Decision Making: Reviewed Test Results
EKG: Tracing Personally Visualized and interpreted (sr)
Echo: Tracing Personally Visualized and interpreted and Report Reviewed by me
Labs: Labs Reviewed by me
--- NOTE | 2025-01-14 10:48 | W.PN.HOSP.TC ---
Today's Communication/Plan
-
dc to home
Assessment / Plan
Assessment / Plan
Assessment:
Acute HFrEF
- Echo: Normal LV size with moderate to severely reduced systolic function. LVEF is approximately 30% by visual estimation. Global hypokinesis. No significant valvular disease. Estimated pulmonary artery pressure of 25 mmHg. Compared to prior
from February 20, 2023, no significant change.
- dc on Lasix M/W/F 40mg
- follow I/Os, weights, lytes
- RHC: Moderate to severely elevated filling pressures (LVEDP = 23 mmHg, PCWP = 25 mmHg at 94.8 kg).
Nonischemic myocardial injury - troponin 0.114, 0.192, trend to peak.
- in the setting of acute HFrEF.
- denies chest pain, but admits to acute SOB/PND/orthopnea.
- smoker 1ppd since at least 03/2024.
- C no obstructive CAD
NICM/DCM - EF 30%.
- GDMT: Coreg/DASIA. in the past he cannot afford Entresto, Farxiga. baseline hypotension limits addition of Aldactone or titration of GDMT.
- declines ICD.
Aflutter - s/p CTI ablation 02/2021.
- on Eliquis.
Afib - paroxysmal.
- in NSR with PACs. Continue Coreg
- on Eliquis, continue.
PIYUSH - CPAP HS at home
- on bipap for now
DVT ppx: Eliquis
Code: Full
More than 30 minutes spent in discharge including
Final examination of the patient
Summarizing hospital stay
Instructions for continuing care to all relevant caregivers
Preparation of discharge records, prescriptions, and referral forms
Total time spent (in minutes): 42
Anticipated Discharge: Today
Subjective/Interval History
-
Date of Service: January 14, 2025
resting comfortably
no complaints at present
Objective Data
-
Labs:
Laboratory Results
01/14/25
04:55
WBC 7.1
Hgb 17.2
Hct 51.7
Plt Count 307
Sodium 140
Potassium 4.7
Chloride 103
Carbon Dioxide 33 H
BUN 19
Creatinine 1.0
Glucose 90
Calcium 9.1
Vital Signs:
Vital Signs
Temp Pulse Resp BP Pulse Ox
98.3 F 69 18 120/93 97
01/14/25 08:10 01/14/25 08:10 01/14/25 08:10 01/14/25 08:10 01/14/25 08:10
I&O
01/13/25 01/14/25 01/15/25
06:59 06:59 06:59
Intake Total 720 / 720
Output Total 250 / 250 1250 / 1250
Balance -250 / -250 -530 / -530
Physical Exam
-
General: No Apparent Distress
HEENT: Normocephalic and Atraumatic
Respiratory: Negative Wheezes
Cardiac: Regular Rhythm and S1/S2
GI: Soft
Genito-urinary: No Costovertebral Tender
Neuro: AO x 3
Psych: Calm
Data Reviewed
-
Total Time Spent with Patient (in minutes): 42
Labs: Labs Reviewed by me
--- NOTE | 2025-01-14 10:53 | W.DS.TRANS ---
DC Summary - [facility]
-
Discharge Instructions:
Discharge Diagnosis/Procedures Cardiomyopathy with acute heart failure, post
cardiac cath
Diet Low Cholesterol,2 Gram Sodium,Restrict fluids to
64 oz
Activity As tolerated
Driving Restrictions No driving for 24 hours
Specialty Instructions Weigh Daily
Instructions:
Stand-Alone Forms: DC Instructions- Cath/EP Lab
Changes to Home Medications: No
Discharge Medications:
DC Medications w/original date entered in [employer]
Ambien: 5 mg PO PRN PRN sleep 03/10/21
acetaminophen 325 mg tablet 650 mg (2 x 325 mg) PO Q4HPRN PRN mild pain/[place]/temp> 100.4F 03/13/21
apixaban 5 mg tablet (Eliquis) 5 mg PO BID #60 tabs 03/13/21
carvedilol 3.125 mg tablet 3.125 mg PO BID #60 tabs 03/13/21
lisinopril 5 mg tablet 5 mg PO DAILY #30 tabs 03/13/21
magnesium hydroxide 400 mg/5 mL oral suspension 30 ml PO DAILYPRN PRN CONSTIPATION 03/13/21
simvastatin 10 mg tablet 10 mg PO BID 01/13/25
furosemide 40 mg tablet (Lasix) 40 mg PO Q OTHER DAY #30 tabs 01/14/25
Home Medication Changes
Pending Results: No
Total time spent discharging patient (in min): 42
[2025-01-14 11:01] VITALS: BP 126/73
[2025-01-14 11:02] VITALS: BP 126/73
--- NOTE | 2025-01-14 11:20 | PTCARENOTE ---
01/14/25 Received patient in chair with no complaints. Pt denied any chest pain, palpitations or shortness of breath. Vitals have been stable on room air 95%. Pt on hall monitor NSR. Pt has been walking in the hallways, no light headedness or
dizziness noted w/activity. Pt to be discharged to home today
== END 2025-01-14 12:06 | disposition home or self-care (01) | DRG 286 ==
LOC: IVU 02:44
PROVIDERS: Internal Medicine Cardiovascular Disease; ADMITTING PHYSICIAN Internal Medicine; ATTENDING PHYSICIAN Internal Medicine; EMERGENCY PHYSICIAN Emergency Medicine; FAMILY PHYSICIAN Family Medicine; OTHER PHYSICIAN Internal Medicine Cardiovascular Disease
PROC: 5A09357 Assistance with Respiratory Ventilation, Less than 24 Consecutive Hours, Continuous Positive Airway Pressure (ICD-10-PCS; 2025-01-12)
PROC: B211YZZ Fluoroscopy of Multiple Coronary Arteries using Other Contrast (ICD-10-PCS; 2025-01-13)
PROC: 4A023N8 Measurement of Cardiac Sampling and Pressure, Bilateral, Percutaneous Approach (ICD-10-PCS; 2025-01-13)
DX: I42.8 Other cardiomyopathies (principal); I50.23 Acute on chronic systolic (congestive) heart failure; I48.92 Unspecified atrial flutter; I5A Non-ischemic myocardial injury (non-traumatic); I25.10 Atherosclerotic heart disease of native coronary artery without angina pectoris; I48.0 Paroxysmal atrial fibrillation; G47.33 Obstructive sleep apnea (adult) (pediatric); F17.210 Nicotine dependence, cigarettes, uncomplicated; I27.20 Pulmonary hypertension, unspecified; R09.02 Hypoxemia; E78.00 Pure hypercholesterolemia, unspecified; Z79.01 Long term (current) use of anticoagulants; Z79.899 Other long term (current) drug therapy; Z82.49 Family history of ischemic heart disease and other diseases of the circulatory system; Z88.0 Allergy status to penicillin; Z88.8 Allergy status to other drugs, medicaments and biological substances; Z88.7 Allergy status to serum and vaccine
CPT/HCPCS: 71045; 80048; 80053; 80061; 83735; 83880; 84100; 84443; 84484; 85025; 85027; 93005; 93306; 93460; 94660; 96365; 96366; 96375; 99152; 99285; C1760; C1894; Q9967